=== PATIENT | male | born 1945 | race Caucasian/White ===

== ENCOUNTER 2020-07-09 22:56 | Inpatient (IN) ==
[2020-07-09] MEDS ORDERED: HYDROmorphone HCL 1 MG/ML DISP.SYRIN IM ONE (23:35)
--- NOTE | 2020-07-09 23:42 | ERNOTE ---
Lower Extremity HPI - Narrative Date of Service: 07/09/20 - General Lower Extremities Pain: hip: right Time Seen by Provider: 07/09/20 23:08 Source: patient, EMS Exam Limitations: no limitations - Immun/Allergies/Home Medications Immunizations: IMMUNIZATION HX Immunizations Up to Date Yes History of Influenza Vaccine No Hx Pneumococcal Vaccination No Allergies/Adverse Reactions: Allergies Allergy/AdvReac Type Severity Reaction Status Date / Time morphine AdvReac Severe Other Verified 07/09/20 23:12 - History of Present Illness Narrative: patient sustained fracture right hip, transferred from [facility] due to no availble bed/ patient accepted by dr cedeno for admission Occurred: this evening Location of Incident: home Method of Injury: Reports: fell, direct blow Reason for Fall: Reports: lost balance, slipped, tripped Loss of Consciousness: Reports: no loss of consciousness Modifying Factors - (Improves): Reports: immobilization Modifying Factors - (Worsens): Reports: movement Associated Symptoms: Reports: unable to bear weight Other Injuries: Reports: none Prior Treament: Reports: recently seen, treated by physician Review of Systems - Review of Systems Constitutional: Present: See HPI EYE: Present: no symptoms reported ENT: Present: no symptoms reported Respiratory: Present: no symptoms reported Cardiology: Present: no symptoms reported Gastrointestinal/Abdominal: Present: no symptoms reported Genitourinary: Present: no symptoms reported Musculoskeletal: Present: See HPI, muscle pain, joint pain, joint swelling Skin: Present: no symptoms reported Neurological: Present: no symptoms reported Endocrine: Present: no symptoms reported Hematologic/Lymphatic: Present: no symptoms reported Psych: Present: no symptoms reported All Other Systems: All systems neg except as marked Medical History (Last Updated 07/09/20 @ 23:32 by Marissa Martinez RN) Abnormal colonoscopy Lung cancer 3 B Family History: Family History (Last Updated 07/09/20 @ 23:33 by Marissa Martinez RN) Mother Diabetes Father Heart problem Social History: (Last Updated 07/09/20 @ 23:34 by Marissa Martinez RN) Tobacco: Smoking Status: Former smoker Alcohol: alcohol intake: former Substance Use: substance use type: does not use Physical Exam - Physical Exam General Appearance: Present: moderate distress, anxious Head Exam: Present: normal inspection, no evidence of injury Eye Exam: Normal inspection: bilateral, PERRL: bilateral, EOMI: bilateral Ears, Nose, Throat: Present: normal ENT inspection, normal pharynx Neck: Present: normal inspection, nontender Respiratory: Present: no respiratory distress, normal breath sounds, no accessory muscle use, chest nontender, lungs clear Cardiovascular/Chest: Present: regular rate, rhythm, no murmur, normal peripheral pulses Gastrointestinal/Abdominal: Present: normal bowel sounds, nontender, nondistended, soft, no organomegaly Back Exam: Present: normal inspection, normal range of motion, no CVA tenderness, no vertebral tenderness Extremity Exam: Present: normal except - - pain and limitied rom right hip Neurological Exam: Present: alert, oriented, normal mood/affect, no motor/sensory deficits Skin Exam: Present: normal color, warm/dry Lymphatic Exam: Present: no adenopathy Progress - Date and Time Seen: Date and Time: 07/10/20 00:[address] pascual, to be admitted - Results and Orders Patient's Lab Results:: I have reviewed the patient's lab results. - Vital Signs Patient's Vital Signs:: I have reviewed the patient's vital signs. Vital Signs: Vital Signs 07/09/20 22:58 Temperature 36.8 C Pulse Rate 106 H Respiratory Rate 22 H O2 Sat by Pulse Oximetry 95 - EKG EKG #1 EKG: NSR EKG read: Interp. by me - CT/Ultrasound CT/Ultrasound Narrative: right hip fracture - Progress/Reassessment Chief Complaint: Hip Pain/Injury Progress:: Unchanged - Transfer of Care Expected Disposition: Admit Plan - Plan Plan[facility] Departure Clinical Impression: Fracture of right hip - Departure Disposition: Short Term Hospital Inpatient Condition: Stable
[2020-07-09] MEDS ORDERED: HYDROmorphone HCL 1 MG/ML DISP.SYRIN IV ONE (23:54)
[2020-07-10] MEDS ORDERED: HYDROmorphone HCL 1 MG/ML DISP.SYRIN IV ONE (00:41)
[2020-07-10] MEDS ORDERED: ONDANSETRON HCL/PF 2 MG/ML VIAL IV PRN (01:12)
[2020-07-10] MEDS: NORMAL SALINE 1,000 ML IV PRN ×3 (01:43→18:56)
[2020-07-10] MEDS: HYDROmorphone HCL 1 MG/ML DISP.SYRIN IV PRN ×5 (06:30→21:51)
[2020-07-10] MEDS ORDERED: FLU VACC QS2020-21(6MOS UP)/PF 60 MCG/0.5 ML SYRINGE IM ONE (09:00)
[2020-07-10] MEDS ORDERED: ACETAMINOPHEN 325 MG TABLET PO PRN (09:16)
[2020-07-10] MEDS ORDERED: ONDANSETRON HCL 8 MG TABLET PO PRN (09:17)
[2020-07-10] MEDS ORDERED: BISACODYL 5 MG TABLET.DR PO PRN (09:17)
[2020-07-10] MEDS ORDERED: Melatonin 1 MG PO PRN (09:17)
[2020-07-10] MEDS ORDERED: PROCHLORPERAZINE MALEATE 10 MG TABLET PO PRN (09:17)
--- NOTE | 2020-07-10 09:51 | HP ---
Chief Complaint - Chief Complaint Date of Service: 07/10/20 Time of Service: 09:41 Chief Complaint: I have right hip pain since I fell yesterday. History of Present Illness: 75-year-old male with past medical history of hypertension, coronary artery disease, lung cancer, nephrolithiasis, orthostatic hypotension, GERD, was brought to the ER from [facility] after the patient was found to have a right hip fracture secondary to a fall that occurred in front of his house yesterday evening. Patient reports he went out to inspect a lantern that his had installed outside of the home and while out on his front porch he lost his balance and fell landing onto his right side. The patient reports excruciating pain during the event but he managed to roll onto his back, he reports being there for several minutes until his discovered him and called for help. The patient denied any trauma to his head or any loss of consciousness and said he simply just lost his balance. The patient was taken to [facility] ED where he underwent x-rays that confirmed a fracture, however they did not have any available beds so they transferred him to [facility]. Medical History (Last Reviewed 07/10/20 @ 02:25 by Yvonne Devi RN) Acute myocardial infarction Coronary atherosclerosis Degenerative disc disease Diarrhea Hydroureteronephrosis Hypercholesterolemia Lung cancer 3 B Adenocarcinoma lower lobe Mastoiditis Pyelonephritis Vertigo Surgical History: Surgical History (Last Reviewed 07/10/20 @ 02:26 by Yvonne Devi RN) Abnormal colonoscopy 06/06/20 H/O mastoidectomy Onset Date: ~1989 History of fusion of cervical spine History of percutaneous coronary intervention History of sinus surgery History of urinary tract surgery Cystoureteroscopy with Lithotripsy-03/13/18, 02/18/2018 Cystoureteroscopy-02/25/18-right Hx of tonsillectomy Onset Date: ~1956 Family History: Family History (Last Reviewed 07/10/20 @ 02:26 by Yvonne Devi RN) Mother Diabetes Suicide Father Heart problem CVA (cerebral vascular accident) Social History: (Last Reviewed 07/10/20 @ 02:26 by Yvonne Devi RN) Tobacco: Smoking Status: Former smoker Alcohol: alcohol intake: former Substance Use: substance use type: does not use Peds Patient Hx - Developmental: No Pertinent Hx Peds Patient Hx - Medical: No Pertinent Hx Peds Patient Hx - Cardiac/Respiratory: No Pertinent Hx Peds Patient Hx - Surgical: No Surgical History Patient History - Cancer: No Hx of Cancer Review Of Systems (GEN) - Review of Systems Generalized/Overall Review: Present: No Symptoms Reported EENTM: Present: No Symptoms Reported Respiratory: Present: No Symptoms Reported Cardiac: Present: No Symptoms Reported Abdominal: Present: No Symptoms Reported Genitourinary: Present: No Symptoms Reported Musculoskeletal: Present: Joint Pain - Right hip pain Neurological: Present: No Symptoms Reported Skin: Present: No Symptoms Reported Endocrine: Present: No Symptoms Reported Immunizations: IMMUNIZATION HX Immunizations Up to Date Yes History of Influenza Vaccine No Hx Pneumococcal Vaccination No Allergies/Adverse Reactions: Allergies Allergy/AdvReac Type Severity Reaction Status Date / Time morphine AdvReac Severe Other Verified 07/09/20 23:12 Home Medications: HOME MEDICATIONS Acetaminophen [Tylenol] 650 mg PO TID PRN 07/10/20 [Last Taken Unknown] Bisacodyl [Dulcolax] 10 mg PO DAILY PRN 07/10/20 [Last Taken Unknown] Duloxetine HCl 60 mg PO DAILY 07/10/20 [Last Taken Unknown] Famotidine [Pepcid] 20 mg PO BID 07/10/20 [Last Taken Unknown] Levofloxacin [Levaquin] 750 mg PO DAILY 07/10/20 [Last Taken Unknown] Loratadine/Pseudoephedrine [Claritin-D 24 Hour Tablet] 1 ea PO DAILY 07/10/20 [Last Taken 07/09/20 09:00] Melatonin 1 tab PO HS PRN 07/10/20 [Last Taken Unknown] Midodrine HCl 2.5 mg PO TID 07/10/20 [Last Taken Unknown] Multivitamin 1 ea PO DAILY 07/10/20 [Last Taken Unknown] Ondansetron HCl 8 mg PO .Q8H PRN 07/10/20 [Last Taken Unknown] Pantoprazole Sodium [Protonix] 40 mg PO DAILY 07/10/20 [Last Taken Unknown] Prochlorperazine Maleate [Compazine] 10 mg PO QID PRN 07/10/20 [Last Taken Unknown] Sennosides [Senokot] 2 tab PO DAILY 07/10/20 [Last Taken Unknown] Exam - Exam Vital Signs: Vital Signs - Last Taken Temp 37 C 07/10/20 06:34 Pulse 102 H 07/10/20 06:34 Resp 14 07/10/20 06:34 BP 111/66 07/10/20 06:34 Pulse Ox 98 07/10/20 06:34 Constitutional: Present: Alert, Oriented x3, Cooperative, Well developed, Well nourished, No distress, Elderly ENT Exam: Present: normal ENT inspection, hearing grossly normal Eye Exam: bilateral eye: normal inspection, PERRL, EOMI Neck: Present: non-tender, full range of motion, supple, normal inspection, trachea midline Back Exam: Present: normal inspection, no CVA tenderness, no vertebral tenderness Breasts: Present: Exam deferred, Nontender Respiratory: Present: chest non-tender, lungs clear, normal breath sounds, no respiratory distress, no accessory muscle use Cardiovascular/Chest: Present: normal peripheral pulses, regular rate, rhythm, no chest tenderness, no edema, no gallop, no JVD, no murmur, no rub Peripheral Pulses: dorsalis-pedis (R): 2+, dorsalis-pedis (L): 2+ Abdomen: Present: Normal bowel sounds, soft, nontender, nondistended, no rebound tenderness, no hepatospenomegaly, no masses /Rectal: Present: Exam deferred Extremity: Present: non-tender, no pedal edema, no calf tenderness, normal capillary refill, leg pain, other - Right lower extremity externally rotated and shortened, pulses and sensations are intact. Skin Exam: Present: normal color, warm/dry, no cyanosis Lymphatic: Present: no adenopathy Neurologic: Present: toppiece cutter II-XII nml as tested, normal cerebellar test, no motor/sensory deficits, alert, normal mood/affect, oriented x 3 Appearance: Present: appropriate appearance, appropriate insight, neat, no memory impairment Eye contact: Present: cooperative, good eye contact, normal speech Thoughts: Present: normal thought pattern, no apparent hallucination Diagnostic Studies: Laboratory Results SARS-CoV-2 (PCR) Not detected (NotDetected) 07/09/20 23:34 Assessment/Plan - Narrative Narrative: Patient was evaluated medical chart was reviewed and decision [facility] for diagnosis of right hip fracture was made. The patient is currently in his room and at the moment he reports adequate control of his right hip pain. Ortho has been consulted to evaluate and for possible repair of the hip fracture. In the meantime all the patient's routine meds have been reconciled so that he can continue taking them while in the hospital. Of note the patient has a history of orthostatic hypotension for which he takes midod rine, so close monitoring of his blood pressure will be needed during hospitalization. At the moment he maintains stable vitals. - Assessment/Plan (1) Fall Problem: Acute (2) Fracture of right hip Problem: Acute (3) H/O orthostatic hypotension Problem: Acute (4) H/O: lung cancer Problem: Chronic (5) Former smoker Problem: Chronic
[2020-07-10] MEDS: FAMOTIDINE 20 MG TABLET PO SCH ×2 (10:18→21:50)
[2020-07-10] MEDS: SENNOSIDES 8.6 MG TABLET PO SCH (10:18)
[2020-07-10] MEDS: LEVOFLOXACIN 750 MG TABLET PO SCH ×2 (10:18→14:27)
[2020-07-10] MEDS: Loratadine/Pseudoephedrine [Claritin-D 24 Hour Tablet] PO SCH (10:18)
[2020-07-10] MEDS: MULTIVITAMINS 1 CAP CAPSULE PO SCH (10:18)
[2020-07-10] MEDS: DULoxetine HCL 30 MG CAPSULE.SA PO SCH ×2 (10:18→14:27)
[2020-07-10] MEDS: PANTOPRAZOLE SODIUM 40 MG TABLET.EC PO SCH ×2 (10:18→14:28)
--- NOTE | 2020-07-10 11:14 | CONS ---
[facility] - General Date of Service: 07/10/20 Narrative: Mr. Ruvalcaba is a 75-year-old gentleman who fell at home when he lost his balance resulting in injury to his right hip. He was seen in outside emergency department found to have a nondisplaced right femoral neck fracture. He was transferred to our facility for further care secondary to the lack of bed availability. He denies any other areas of injury. Denies any prior hip pathology. Source: patient Exam Limitations: no limitations - History of Present Illness Timing/Duration: 24 hours Modifying Factors - (Worsens): Reports: movement Modifying Factors - (Improves): Reports: immobilization Associated Symptoms: denies symptoms Allergies/Adverse Reactions: Allergies morphine Adverse Reaction (Severe, Verified 07/09/20 23:12) Other altered metal status Home Medications: Home Medications Medication Instructions Recorded Last Taken Acetaminophen [Tylenol] 650 mg PO TID PRN 07/10/20 Unknown Bisacodyl [Dulcolax] 10 mg PO DAILY PRN 07/10/20 Unknown Duloxetine HCl 60 mg PO DAILY 07/10/20 Unknown Famotidine [Pepcid] 20 mg PO BID 07/10/20 Unknown Levofloxacin [Levaquin] 750 mg PO DAILY 07/10/20 Unknown Loratadine/Pseudoephedrine 1 ea PO DAILY 07/10/20 07/09/20 09:00 [Claritin-D 24 Hour Tablet] Melatonin 1 tab PO HS PRN 07/10/20 Unknown Midodrine HCl 2.5 mg PO TID 07/10/20 Unknown Multivitamin 1 ea PO DAILY 07/10/20 Unknown Ondansetron HCl 8 mg PO .Q8H PRN 07/10/20 Unknown Pantoprazole Sodium [Protonix] 40 mg PO DAILY 07/10/20 Unknown Prochlorperazine Maleate 10 mg PO QID PRN 07/10/20 Unknown [Compazine] Sennosides [Senokot] 2 tab PO DAILY 07/10/20 Unknown Medications - Medications Current Medications: Current Medications Duloxetine HCl (Cymbalta) 60 mg PO DAILY [facility] Stop: 08/09/20 09:31 Last Admin: 07/10/20 10:18 Dose: Not Given Documented by: Famotidine (Pepcid) 20 mg PO BID NOHEMY Stop: 08/09/20 09:31 Last Admin: 07/10/20 10:18 Dose: Not Given Documented by: Hydromorphone HCl (Dilaudid) 1 mg IV Q2H PRN PRN Reason: Analgesia Stop: 08/09/20 01:13 Last Admin: 07/10/20 09:53 Dose: 1 mg Documented by: Sodium Chloride (Sodium Chloride 0.9%) 1,000 mls @ 125 mls/hr IV .Q8H PRN PRN Reason: HYDRATION Stop: 08/09/20 01:12 Last Admin: 07/10/20 09:52 Dose: 125 mls/hr Documented by: Levofloxacin (Levaquin) 750 mg PO DAILY [facility]; Protocol Stop: 08/09/20 09:31 Last Admin: 07/10/20 10:18 Dose: Not Given Documented by: Multivitamins/Folic Acid (Multivitamin Rojelio) 1 cap PO DAILY [facility] Stop: 08/09/20 09:31 Last Admin: 07/10/20 10:18 Dose: Not Given Documented by: Loratadine/Pseudoephedrine [ Claritin-D 24 Hour Tablet] 1 ea PO DAILY [facility] Stop: 08/09/20 09:31 Last Admin: 07/10/20 10:18 Dose: Not Given Documented by: Pantoprazole Sodium (Protonix) 40 mg PO DAILY@0700 [facility] Stop: 08/09/20 09:31 Last Admin: 07/10/20 10:18 Dose: Not Given Documented by: Senna (Senokot) 17.2 mg PO DAILY [facility] Stop: 08/09/20 09:31 Last Admin: 07/10/20 10:18 Dose: Not Given Documented by: Review of Systems - Review of Systems Narrative: As above Physical Examination - Exam Narrative: Right lower extremity: Neurovascular intact to light touch, thigh is soft, no lacerations or abrasions, able to flex and extend his toes, pain with any hip range of motion, no gross deformity Vital Signs: Vital Signs - Last Taken Temp 36.7 C 07/10/20 10:29 Pulse 98 07/10/20 10:29 Resp 12 07/10/20 10:29 BP 108/69 07/10/20 10:29 Pulse Ox 98 07/10/20 10:29 O2 Oxygen Delivery Method Room Air Constitutional: Present: Alert, Oriented x3 - Results and Findings: Narrative: Right hip x-rays viewed on halo and report read but images not available at this time: Nondisplaced right femoral neck fracture - Assessments/Findings (1) Fracture of right hip Diagnosis(s): We will request that they send his images down but the plan at this time would be for a percutaneous fixation of the right femoral neck fracture. The plan to be tomorrow. He will be n.p.o. after midnight. He will need 6 weeks of DVT prophylaxis postoperatively. Ancef for prophylactic antibiotics. Problem: Acute Qualifiers: Encounter type: initial encounter Fracture type: closed Qualified Code(s): S72.001A - Fracture of unspecified part of neck of right femur, initial encounter for closed fracture
--- NOTE | 2020-07-10 12:11 | ANES ---
Anesthesia Pre Procedure Eval Vitals/Labs: Last Vital Signs Temp 36.7 C 07/10/20 10:29 Pulse 98 07/10/20 10:29 Resp 12 07/10/20 10:29 BP 108/69 07/10/20 10:29 Pulse Ox 98 07/10/20 10:29 HOME MEDICATIONS Acetaminophen [Tylenol] 650 mg PO TID PRN 07/10/20 [Last Taken Unknown] Bisacodyl [Dulcolax] 10 mg PO DAILY PRN 07/10/20 [Last Taken Unknown] Duloxetine HCl 60 mg PO DAILY 07/10/20 [Last Taken Unknown] Famotidine [Pepcid] 20 mg PO BID 07/10/20 [Last Taken Unknown] Levofloxacin [Levaquin] 750 mg PO DAILY 07/10/20 [Last Taken Unknown] Loratadine/Pseudoephedrine [Claritin-D 24 Hour Tablet] 1 ea PO DAILY 07/10/20 [Last Taken 07/09/20 09:00] Melatonin 1 tab PO HS PRN 07/10/20 [Last Taken Unknown] Midodrine HCl 2.5 mg PO TID 07/10/20 [Last Taken Unknown] Multivitamin 1 ea PO DAILY 07/10/20 [Last Taken Unknown] Ondansetron HCl 8 mg PO .Q8H PRN 07/10/20 [Last Taken Unknown] Pantoprazole Sodium [Protonix] 40 mg PO DAILY 07/10/20 [Last Taken Unknown] Prochlorperazine Maleate [Compazine] 10 mg PO QID PRN 07/10/20 [Last Taken Unknown] Sennosides [Senokot] 2 tab PO DAILY 07/10/20 [Last Taken Unknown] Allergies/Adverse Reactions: Allergies Allergy/AdvReac Type Severity Reaction Status Date / Time morphine AdvReac Severe Other Verified 07/09/20 23:12 - Planned Procedure Planned Procedure: ORIF right hip Medication List Reviewed:: Yes Allergies Verified: Yes Medical History (Last Reviewed 07/10/20 @ 12:10 by Bradley Brown CRNA) Acute myocardial infarction Coronary atherosclerosis Degenerative disc disease Diarrhea Hydroureteronephrosis Hypercholesterolemia Lung cancer 3 B Adenocarcinoma lower lobe Mastoiditis Pyelonephritis Vertigo Surgical History (Last Reviewed 07/10/20 @ 12:10 by Bradley Brown CRNA) Abnormal colonoscopy 06/06/20 H/O mastoidectomy Onset Date: ~1989 History of fusion of cervical spine History of percutaneous coronary intervention History of sinus surgery History of urinary tract surgery Cystoureteroscopy with Lithotripsy-03/13/18, 02/18/2018 Cystoureteroscopy-02/25/18-right Hx of tonsillectomy Onset Date: ~1956 Family History (Last Reviewed 07/10/20 @ 12:10 by Bradley Brown CRNA) Mother Diabetes Suicide Father Heart problem CVA (cerebral vascular accident) - Family Anesthesia History Family History:: no untoward family reactions to anesthesia, no familial bleeding tendencies, no family history of clotting disorders, no family history of premature - Airway/Neck/Teeth Within Normal Limits:: Yes Denture Type: Full upper, Full lower Mallampatti Score: 1 Thyromental (T-M) distance: > 6 cm Mandibulo Hyoid distance: > 3 cm - Respiratory Respiratory Physical: lungs clear Discussed smoking cessation including day of surgery: No Sleep Apnea currently treated: No Sleep Apnea by current assessment: No Discussed Risks/Treatment of FLAKO: No - Cardiovascular Tolerate Activity: Fair Heart Sounds: S1 & S2, Regular - Gastrointestinal NPO since: instructed to be NOP after MN - Anesthesia Assessment and Plan ASA Class: PS, IV, E Anesthesia Type Plan: Spinal
[2020-07-10] MEDS: MIDODRINE HCL 2.5 MG TABLET PO SCH ×2 (14:24→16:53)
[2020-07-10] MEDS ORDERED: CALCIUM CARBONATE 500 MG TAB.CHEW PO PRN (16:14)
[2020-07-11] MEDS: HYDROmorphone HCL 1 MG/ML DISP.SYRIN IV PRN ×2 (02:14→08:16)
[2020-07-11] MEDS: NORMAL SALINE 1,000 ML IV PRN (02:54)
[2020-07-11] MEDS ORDERED: RINGER'S SOLUTION,LACTATED 1,000 ML IV PRN (06:00)
[2020-07-11] MEDS ORDERED: ceFAZolin SODIUM 1 GM VIAL IV PRN (06:00)
[2020-07-11] MEDS: PANTOPRAZOLE SODIUM 40 MG TABLET.EC PO SCH (07:48)
[2020-07-11] MEDS ORDERED: ceFAZolin SODIUM 1 GM VIAL ONE (07:55)
[2020-07-11] MEDS ORDERED: LIDOCAINE HCL 20 ML VIAL ONE (08:39)
[2020-07-11] MEDS ORDERED: ONDANSETRON HCL/PF 2 MG/ML VIAL ONE (08:39)
[2020-07-11] MEDS ORDERED: PROPOFOL VIAL IV ONE (08:39)
[2020-07-11] MEDS ORDERED: fentaNYL CITRATE/PF 50 MCG/ML AMPUL ONE (08:39)
[2020-07-11] MEDS ORDERED: ZOLPIDEM TARTRATE 5 MG TABLET PO PRN (09:39)
[2020-07-11] MEDS ORDERED: MAG HYDROX/ALUMINUM HYD/SIMETH 30 ML UDC PO PRN (09:39)
[2020-07-11] MEDS ORDERED: MAGNESIUM HYDROXIDE 30 ML UDC PO PRN (09:39)
[2020-07-11] MEDS ORDERED: diphenhydrAMINE HCL 50 MG/ML VIAL IV PRN (09:39)
[2020-07-11] MEDS ORDERED: ACETAMINOPHEN 500 MG TABLET PO PRN (09:39)
--- NOTE | 2020-07-11 09:39 | OR ---
Operative Report - Dictated Report Narrative: Date: 07/11/2020 Surgeon: Juan Rodriguez M.D. Wood Piler: None Preoperative diagnosis: Closed right nondisplaced femoral neck fracture Postoperative diagnosis:Closed right nondisplaced femoral neck fracture Operations and procedures: 1. Percutaneous fixation right nondisplaced femoral neck fracture 2. Intraoperative interpretation of radiographs Anesthesia: Spinal Specimens: None Estimated blood loss: Minimal Retained implants: [employer] 7.3 millimeter 32 millimeter threads cannulated screws 105 inferior, 95 anterior and posterior millimeter lengths Complications: None Indications for procedure: Mr. Ruvalcaba is a 75-year-old gentleman who injured the right hip after ground-level fall at home. He was admitted to the hospital after being evaluated in the emergency department. Once the medical provider felt that they were stable for surgical treatment, the risks and benefits alternatives were discussed. The risks of , blood clots, bleeding, infection, nerve/tendon/blood vessel injury, malunion, nonunion, failure of implants, painful implants, arthrosis, and need for additional procedures were discussed. The extremity was marked and consent was obtained on the floor. Procedure: After marking the operative extremity on the floor, the patient was taken to the operating room. A timeout was performed. IV antibiotics consisting of Ancef were administered. A spinal anesthetic was induced by anesthesia, and the patient was then placed onto a fracture table with a well-padded perineal post. The nonoperative leg was placed in a well-padded traction boot in slight extension without any traction with an SCD on the leg. The operative leg was placed in a well-padded traction boot. No traction or manipulation was performed. Preliminary images were attained utilizing C-arm in both the AP and lateral views. This confirmed that we had obtained adequate visualization of the fracture as well as reduction. Next the hip was then prepped and draped in a standard sterile fashion. Next three guidewires were placed percutaneously in an inverted triangle fashion. The inferior screws placed centered on the lateral view and along the inferior neck cortex on the AP view. The 2 superior screws were placed along the anterior and posterior cortex on the lateral view and along the inferior portion of the superior cortex on the AP in order to obtain as long of screws as possible. This was done with a starting point above the level of the lesser trochanter. C-arm was utilized in order to confirm the placement and to ensure that the tips of the guidewires were not penetrating the joint. The screws were then measured, the outer cortex was drilled, and the 3 screws were placed securing them to the bone on the lateral aspect providing fixation across the fracture. C-arm was again utilized to ensure that the screws were not into the joint and that they stabilized the fracture. The wounds were then thoroughly irrigated. Final images were obtained. The hip was placed through range of motion and showed no crepitance. The subcutaneous tissue was closed with 3-0 Vicryl, and the skin was closed with ger. Sterile dressings of Xeroform, 4 x 4, and Tegaderm were applied. All sponge, sharp, and instrument counts were correct prior to closing the wounds. The patient was then awoken and transferred to the postanesthesia care unit in stable condition.
--- NOTE | 2020-07-11 09:58 | ANES ---
Post Anesthesia Discharge - Transfer of Care Transfer of Care handoff given to nurse: Yes - Discharge from PACU Discharge from PACU when meets criteria: Yes - Discharge to ASU Discharge to ASU-no complications/pt stable: Yes
--- NOTE | 2020-07-11 11:01 | ANES ---
Post Anesthesia Assessment - Vital Signs Vitals: Last Vital Signs Temp 36.4 C 07/11/20 10:30 Pulse 92 07/11/20 10:30 Resp 16 07/11/20 10:30 BP 107/60 07/11/20 10:30 Pulse Ox 97 07/11/20 10:30 Airway Patency: Normal - Mental Status Level Of Consciousness: Awake - Pain Level Pain Score: 0 - N/V Assessment Nausea/Vomiting Presence: None Dehydration:: No
--- NOTE | 2020-07-11 11:30 | PN ---
Subjective - Date and Time Seen Date: 07/11/20 Time: 11:19 Subjective Narrative: My pain is controlled at the moment. Objective Objective Narrative: 75-year-old male status post right hip fracture repair postop day #0 was evaluated at bedside was found to be afebrile and in no acute distress. Patient just returned from the OR after a successful repair of his right hip fracture. There were no adverse events reported during the procedure and is resting comfortably in his room. He denies any pain at the moment. Ortho has ordered for him to start physical therapy and says it is okay for him to bear weight. Therefore we will follow-up with recommendations from physical therapy before considering discharge planning. In the meantime, we will continue to monitor him closely. - Review of Systems Generalized/Overall Review: Reports: No Symptoms Reported EENTM: Reports: No Symptoms Reported Respiratory: Reports: No Symptoms Reported Cardiac: Reports: No Symptoms Reported Abdominal: Reports: No Symptoms Reported Genitourinary Symptoms: Reports: No Symptoms Reported Musculoskeletal Complaints: Reports: Joint Pain Neurological: Reports: No Symptoms Reported Skin: Reports: No Symptoms Reported Endocrine: Reports: No Symptoms Reported - Vitals Vitals: Last Vital Signs Temp 36.4 C 07/11/20 10:30 Pulse 92 07/11/20 10:30 Resp 16 07/11/20 10:30 BP 107/60 07/11/20 10:30 Pulse Ox 97 07/11/20 10:30 - Exam Constitutional: Present: Alert, Oriented x3, Cooperative, Well developed, Well nourished, No distress ENT Exam: Present: normal ENT inspection, hearing grossly normal Neck: Present: non-tender, full range of motion, supple, normal inspection, trachea midline Breasts: Present: Exam deferred, Nontender Respiratory: Present: chest non-tender, lungs clear, normal breath sounds, no respiratory distress, no accessory muscle use Cardiovascular/Chest: Present: normal peripheral pulses, regular rate, rhythm, no chest tenderness, no edema, no gallop, no JVD, no murmur, no rub Abdomen: Present: Normal bowel sounds, soft, nontender, nondistended, no rebound tenderness, no hepatospenomegaly, no masses /Rectal: Present: Exam deferred Extremity: Present: other - Right hip covered by dry clean bandage. Skin Exam: Present: normal color, warm/dry, no cyanosis Lymphatic: Present: no adenopathy Neurologic: Present: chief psychologist II-XII nml as tested, no motor/sensory deficits, alert, normal mood/affect, oriented x 3 Appearance: Present: appropriate appearance, appropriate insight, neat, no memory impairment Eye contact: Present: cooperative, good eye contact, normal speech Thoughts: Present: normal thought pattern Cauti Physician Documentation - Urinary Catheter Management Urethral (Rice) Date of Insertion: 07/11/20 Time of Insertion: 07:00 Assessment/Plan Plan Narrative: Repeat labs have been ordered for tomorrow morning to reevaluate postop hemoglobin levels and electrolytes. In the meantime patient is to start physical therapy as ordered by Ortho. - Problems/Diagnosis (1) Fall Problem: Acute (2) Fracture of right hip Problem: Acute Qualifiers: Encounter type: initial encounter Fracture type: closed Qualified Code(s): S72.001A - Fracture of unspecified part of neck of right femur, initial encounter for closed fracture (3) H/O orthostatic hypotension Problem: Acute (4) H/O: lung cancer Problem: Chronic (5) Former smoker Problem: Chronic
[2020-07-11] MEDS: DEXTROSE 5%-LACTATED RINGERS 1,000 ML IV PRN ×2 (11:38→19:01)
[2020-07-11] MEDS: MIDODRINE HCL 2.5 MG TABLET PO SCH ×3 (12:16→16:14)
[2020-07-11] MEDS: Loratadine/Pseudoephedrine [Claritin-D 24 Hour Tablet] PO SCH (15:07)
[2020-07-11] MEDS: FAMOTIDINE 20 MG TABLET PO SCH ×2 (15:07→20:13)
[2020-07-11] MEDS: MULTIVITAMINS 1 CAP CAPSULE PO SCH (15:14)
[2020-07-11] MEDS: LEVOFLOXACIN 750 MG TABLET PO SCH (15:14)
[2020-07-11] MEDS: DULoxetine HCL 30 MG CAPSULE.SA PO SCH (15:14)
[2020-07-11] MEDS: oxyCODONE HCL/ACETAMINOPHEN 1 TAB TABLET PO PRN ×2 (15:14→21:10)
[2020-07-11] MEDS: SENNOSIDES 8.6 MG TABLET PO SCH (15:23)
[2020-07-11] MEDS ORDERED: SENNOSIDES/DOCUSATE SODIUM 1 TAB TABLET PO SCH (21:00)
[2020-07-12] MEDS: oxyCODONE HCL/ACETAMINOPHEN 1 TAB TABLET PO PRN ×3 (02:30→15:54)
[2020-07-12] MEDS: PANTOPRAZOLE SODIUM 40 MG TABLET.EC PO SCH (07:37)
[2020-07-12] MEDS: MIDODRINE HCL 2.5 MG TABLET PO SCH ×2 (08:34→13:53)
[2020-07-12] MEDS: Loratadine/Pseudoephedrine [Claritin-D 24 Hour Tablet] PO SCH (08:34)
[2020-07-12] MEDS: FAMOTIDINE 20 MG TABLET PO SCH (08:34)
[2020-07-12] MEDS ORDERED: RIVAROXABAN 20 MG TABLET PO SCH (09:00)
[2020-07-12] MEDS: DULoxetine HCL 30 MG CAPSULE.SA PO SCH (09:09)
[2020-07-12] MEDS: LEVOFLOXACIN 750 MG TABLET PO SCH (09:09)
[2020-07-12] MEDS: MULTIVITAMINS 1 CAP CAPSULE PO SCH (09:09)
--- NOTE | 2020-07-12 12:50 | PN ---
Subjective - Date and Time Seen Date: 07/12/20 Time: 12:49 Subjective Narrative: Subjective: Reports mild pain. Was able to walk some with therapy. Pain is well-controlled. Voiding without any complications. Tolerating by mouth intake. Denies any nausea or vomiting. Denies calf pain. Slept well. Physical exam: Alert and oriented to person, place and time Right lower extremity: Palpable dorsalis pedis pulse. Sensation grossly intact to light touch. Dressings clean and dry. Able to flex and extend ankle and toes. No excessive drainage. Calf and thigh are soft and nontender. Assessment: Postop day 1 status post percutaneous fixation of right femoral neck fracture Plan: Okay to discharge from orthopedic standpoint. Keep the wound dry. Cover with dry gauze and tape and change every 2 to 3 days as needed. Continue with physical and occupational therapy weightbearing as tolerated. Continue with anticoagulation -will need 6 weeks of DVT prophylaxis. 24 hours postoperative prophylactic antibiotics. Pain control with goal to rely on oral medications. Continue bowel regimen. Follow-up in 2 weeks in orthopedic office Objective - Vitals Vitals: Last Vital Signs Temp 36.4 C 07/12/20 10:00 Pulse 99 07/12/20 10:00 Resp 16 07/12/20 10:00 BP 135/71 07/12/20 10:00 Pulse Ox 95 07/12/20 10:00 Cauti Physician Documentation - Urinary Catheter Management Urethral (Rice) Date of Insertion: 07/11/20 Time of Insertion: 07:00 Date of Removal: 07/12/20 Time of Removal: 04:47 Assessment/Plan - Problems/Diagnosis (1) Fracture of right hip Problem: Acute Qualifiers: Encounter type: subsequent encounter Fracture type: closed Fracture healing: with routine healing Qualified Code(s): S72.001D - Fracture of unspecified part of neck of right femur, subsequent encounter for closed fracture with routine healing
--- NOTE | 2020-07-12 13:42 | DS ---
(1) Fall Problem: Acute (2) Fracture of right hip Problem: Acute Qualifiers: Encounter type: subsequent encounter Fracture type: closed Fracture healing: with routine healing Qualified Code(s): S72.001D - Fracture of unspecified part of neck of right femur, subsequent encounter for closed fracture with routine healing (3) H/O orthostatic hypotension Problem: Acute (4) H/O: lung cancer Problem: Chronic (5) Former smoker Problem: Chronic Date of Discharge:: 07/12/20 Hospital Course: 75-year-old male admitted for right hip fracture who is now status post percutaneous intramedullary fixation of a right femoral neck fracture postop day #1 was evaluated at bedside and was found to be afebrile and in no acute distress. Patient tolerated his procedure without any major issues and is recuperating well. He was evaluated by the orthopedic surgeon this morning who cleared him for discharge to his home with home health services, he also ordered the patient to continue PT and OT and to stay on 6-week anticoagulation therapy. The patient is already on Xarelto so this complies with the anticoagulation order so no changes were made to this medication. The patient is to follow-up with the orthopedic surgeon and the next few weeks. He will be discharged with additional days of pain medications to keep him comfortable. Procedures Performed: see notes below - Intramedullary fixation of a right femoral neck fracture. Results and Findings: Lab Pending Results 07/09/20 23:34: SARS-CoV-2 (PCR) Not detected Discharge Location: Home Disposition: Home Health Service Home Health Agency: [facility] Condition: Stable Face to Face Encounter completed per [facility] Guidelines: No Discharge Activity: Weight bearing Discharge Diet: General/regular food Fdc Therapy: Physical Therapy, Occupation Therapy Additional Patient Instructions (free text): Tele/video is set up with PCP PERRY Rushing provider on SundayJuly 26 at 11:00am. Fax chart information to [employer] PERRY Ferro at fax# [phone]. Follow up [facility] Orthopedic office appointment on SundayJuly 28 at 11:00am. Continue with [facility]. Please call and fax discharge information to them to fax #[phone]. Prescriptions (Any new or edited meds): oxyCODONE HCL/ACETAMINOPHEN [Percocet 5 MG/325 MG] 2 tab PO Q4H PRN #40 tab PRN Reason: Moderate Pain (Pain Scale 4-6) Transmission Status: Received by [facility] #[id number] Rivaroxaban [Xarelto] 10 mg PO DAILY #42 tab Transmission Status: Pending to [facility] #[id number] Complete Home Medications List: Complete Home Medication List: Acetaminophen [Tylenol] 650 mg PO TID PRN 07/10/20 Bisacodyl [Dulcolax] 10 mg PO DAILY PRN 07/10/20 Duloxetine HCl 60 mg PO DAILY 07/10/20 Famotidine [Pepcid] 20 mg PO BID 07/10/20 Levofloxacin [Levaquin] 750 mg PO DAILY 07/10/20 Loratadine/Pseudoephedrine [Claritin-D 24 Hour Tablet] 1 ea PO DAILY 07/10/20 Melatonin 1 tab PO HS PRN 07/10/20 Midodrine HCl 2.5 mg PO TID 07/10/20 Multivitamin 1 ea PO DAILY 07/10/20 Ondansetron HCl 8 mg PO .Q8H PRN 07/10/20 Pantoprazole Sodium [Protonix] 40 mg PO DAILY 07/10/20 Prochlorperazine Maleate [Compazine] 10 mg PO QID PRN 07/10/20 Sennosides [Senokot] 2 tab PO DAILY 07/10/20 Rivaroxaban [Xarelto] 10 mg PO DAILY #42 tab 07/12/20 oxyCODONE HCL/ACETAMINOPHEN [Percocet 5 MG/325 MG] 2 tab PO Q4H PRN #40 tab 07/12/20 Forms: Patient Portal Registration
[2020-07-12 16:38] VITALS: BP 119/73
== END 2020-07-12 16:38 | disposition home health service (06) | DRG 482 ==
LOC: ER 22:56 → MS 07-10 01:02
PROVIDERS: ADMIT Family Medicine; ATTEND Family Medicine